=== PATIENT | female | born 1980 | race Caucasian/White ===

== ENCOUNTER → 2019-08-04 | Outpatient (CLI) | payer MEDICAID ==
--- NOTE | 2019-08-04 11:27 | MM ---
Reason for exam: clinical finding. Last mammogram was performed 3 years ago. Physical Findings: Nurse Summary: 0.5cm nodule in the right breast at 9 o'clock (nurse los). MG Diagnostic Mammo w CAD RASTA Bilateral CC and MLO view(s) were taken. Prior study comparison: August 02, 2016, bilateral MG 3d diag mammo w/cad RASTA. October 10, 2014, left breast MG work up mamm w CAD LT. The breast tissue is heterogeneously dense. This may lower the sensitivity of mammography. No suspicious abnormality. No significant new findings when compared with previous films. These results were verbally communicated with the patient and result sheet given to the patient on 08/04/19. ASSESSMENT: Incomplete: need additional imaging evaluation, BI-RAD 0 RECOMMENDATION: Ultrasound of the right breast.
--- NOTE | 2019-08-04 11:29 | USB ---
Reason for exam: additional evaluation requested from abnormal screening. US Breast Limited RT Right limited breast ultrasound including focal area of concern, retroareolar and axilla demonstrates a 0.4 x 0.3 x 0.4cm mixed lesion at 9 o'clock, deep to palpable. These results were verbally communicated with the patient and result sheet given to the patient on 08/04/19. ASSESSMENT: Suspicious, BI-RAD 4 RECOMMENDATION: Ultrasound core biopsy of the right breast. Called Dr. Del Castillo's office with mammographic findings and has scheduled an appointment for the patient for 10/07/19 at 9:[address] Gleason. Biopsy scheduled for 08/25/19 at 8:00. PRELIMINARY REPORT CALLED AND FAXED TO DR. GLEASON ON 08/04/19.
== END | disposition home or self-care (01) ==
LOC: RADMAMWWP 09:34
PROVIDERS: ATTEND Obstetrics & Gynecology
DX: N63.10 Unspecified lump in the right breast, unspecified quadrant (principal); N63.20 Unspecified lump in the left breast, unspecified quadrant; N64.4 Mastodynia; R92.8 Other abnormal and inconclusive findings on diagnostic imaging of breast
CPT/HCPCS: 77066

== ENCOUNTER → 2019-08-25 | Day surgery (SDC) | payer MEDICAID ==
[2019-08-25 07:28] VITALS: BP 102/68; PULSE 62; RESP 16; TEMP 98.6
--- NOTE | 2019-08-25 09:05 | USB ---
EXAMINATION TYPE: US discontinued breast bx RT DATE OF EXAM: 08/25/2019 COMPARISON: 08/04/2019 HISTORY: Palpable right breast abnormality for which core needle biopsy was recommended. TECHNIQUE/FINDINGS: The patient describes that the previous palpable abnormality is no longer palpabl e. The patient also describes previous right breast redness and pain that has resolved in the interim . Targeted ultrasound was performed of the right breast at the 9:00 position. The previously seen 0.4 x 0.3 cm mass appears to have sonographic features of a lymph node on the prior examination. On the current examination this has decreased in size now measuring 0.3 x 0.2 cm also appearing as a small l ymph node. Given the clinical findings and decreased size this is most fitting of a benign lymph node that was reactive on the prior. Precautionary three-month follow-up ultrasound will be performed of the right breast at the 9:00 position. Findings and recommendations were discussed with the patient a nd the patient agreed. IMPRESSION: BI-RADS 3-probably benign. Three-month follow-up precaution ultrasound will be performed of the right breast to reevaluate the probable lymph node.
== END ==
LOC: RADUSWWP 07:02
PROVIDERS: ATTEND Surgery
DX: R92.8 Other abnormal and inconclusive findings on diagnostic imaging of breast (principal)

== ENCOUNTER → 2019-09-01 | Outpatient (CLI) | payer MEDICAID ==
[2019-09-01 08:27] LABS: Basophils # (A) 0.1 k/uL (0-0.2); Basophils % (A) 1 %; Eosinophils # (A) 0.1 k/uL (0-0.7); Eosinophils % (A) 2 %; HCT 43.6 % (34.0-46.0); HGB 13.6 gm/dL (11.4-16.0); Lymphocytes # (A) 1.4 k/uL (1.0-4.8); Lymphocytes % (A) 31 %; MCH 28.3 pg (25.0-35.0); MCHC 31.3 g/dL (31.0-37.0); MCV 90.4 fL (80.0-100.0); Mean Platelet Volume 8.5; Monocytes # (A) 0.2 k/uL (0-1.0); Monocytes % (A) 5 %; Neutrophils # (A) 2.5 k/uL (1.3-7.7); Neutrophils % (A) 58 %; Platelet Count 210 k/uL (150-450); RBC 4.82 m/uL (3.80-5.40); RDW 12.4 % (11.5-15.5); WBC 4.4 k/uL (3.8-10.6)
[2019-09-01 16:36] LABS: African American GFR (CKD) 126.5 (60.0-200.0); Albumin 4.5 g/dL (3.80-4.90); Albumin/Globulin Ratio 2.25 (1.60-3.17); Anion Gap 7.7 mmol/L (4.00-12.00); BUN/Creat Ratio 17.14 Ratio (12.00-20.00); Calcium 9.2 mg/dL (8.7-10.3); Carbon Dioxide 27.3 mmol/L (21.6-31.8); Chol/HDL Ratio 2.46; LDL Cholesterol,Calculated 104.6 mg/dL (0.0-131.0); Non-African American GFR(CKD) 109.1 (60.0-200.0); Potassium 4.5 mmol/L (3.5-5.5); Total Bilirubin 0.4 mg/dL (0.2-1.2); Total Protein 6.5 g/dL (6.2-8.2); VLDL Calculation 10.4 mg/dL (5.00-40.00)
[2019-09-01 16:44] LABS: T4, Free (Free Thyroxine) 1.3 ng/dL (0.80-1.80)
[2019-09-01 19:33] LABS: Hemoglobin A1C 4.9 % (4.0-6.0)
== END | disposition home or self-care (01) ==
LOC: LABWHC1 07:58
PROVIDERS: ATTEND Family Medicine
DX: Z00.00 Encounter for general adult medical examination without abnormal findings (principal)
CPT/HCPCS: 36415; 80053; 80061; 83036; 84439; 84443; 85025

== ENCOUNTER → 2022-01-20 | Outpatient (CLI) | payer MEDICAID | END | disposition home or self-care (01) | LOC: LABMAIN 07:54 | PROVIDERS: ATTEND Physician Assistant | DX: Z20.822 Contact with and (suspected) exposure to COVID-19 (principal) | CPT/HCPCS: 87635 ==

== ENCOUNTER → 2022-02-08 | Outpatient (CLI) | payer MEDICAID | END | disposition home or self-care (01) | LOC: LABMAIN 06:48 | PROVIDERS: ATTEND Family Medicine | DX: Z53.9 Procedure and treatment not carried out, unspecified reason (principal) ==

== ENCOUNTER → 2022-08-12 | Outpatient (CLI) | payer MEDICAID ==
--- NOTE | 2022-08-12 08:45 | XR ---
EXAMINATION TYPE: XR ankle complete RT DATE OF EXAM: 08/12/2022 CLINICAL HISTORY: Pain. Twisting injury. TECHNIQUE: Frontal, lateral and oblique images of the right ankle are obtained. COMPARISON: None. FINDINGS: There is no acute fracture/dislocation evident in the right ankle. The ankle mortise appe ars within normal limits. Mild focal soft tissue swelling over the lateral malleolus. IMPRESSION: There is no acute fracture or dislocation in the right ankle.
== END | disposition home or self-care (01) ==
LOC: RADXRMAIN 07:35
PROVIDERS: ATTEND Physician Assistant
DX: M25.571 Pain in right ankle and joints of right foot (principal)